=== PATIENT | male | born 1955 | race Two or more races ===

== ENCOUNTER 2016-07-17 20:55 | Emergency (ER) | payer MEDICARE, MEDICAID ==
[~2016-07-17] VITALS: Ht 165.1 cm; Wt 72.6 kg
[~2016-07-17 20:55] MED LIST: CIPR-173 PO; FOLI1TAB6 PO; FURO40TA4 PO; LACT10SO PO; OMEP20CA5 OR; PROPANOLOL PO; Rifaximin PO; SPIR25TA89 PO; THIA100T11 PO; TRAZ50TA2 PO; URSO300C7 PO
[2016-07-17] MEDS ORDERED: SODIUM CHLORIDE 0.9% 1,000 ML IV ONE (21:30)
[2016-07-17 21:36] LABS: Basophils # (auto) 0.1 uL; Basophils % (auto) 1.1 % (0.0-2.0); DEFINITIVE VIEW TRANSMISSION; Eosinophils # (auto) 0.1 uL; Eosinophils % (auto) 1.1 % (0.0-7.0); Hemoglobin 8.8 g/dL (13.5-17.5); Lymphocytes # (auto) 0.8 uL; Lymphocytes % (auto) 12.3 % (10.0-50.0); Mean Corpuscular Hemoglobin 30.1 pg (28.0-32.0); Mean Corpuscular Hgb Conc. 33.6 g/dL (32.0-36.0); Mean Corpuscular Volume 89.6 fL (80.0-100.0); Mean Platelet Volume 7.3 fL (7.4-10.4); Monocytes # (auto) 0.8 uL; Monocytes % (auto) 12.3 % (0.0-12.0); Neutrophils # (auto) 4.5 uL; Neutrophils % (auto) 73.2 % (37.0-80.0); Platelet Count (auto) 235 10^3/uL (140-450); White Blood Cell 6.1 10^3/uL (4.4-10.8)
[2016-07-17 21:47] LABS: Albumin 2.2 g/dL (3.4-5.0); Anion Gap 8 (5-15); Aspartate Aminotransferase 14 U/L (15-37); BUN/Creatinine Ratio 15.1; Blood Urea Nitrogen 16 mg/dL (7-18); Calcium 7.7 mg/dL (8.5-10.1); Carbon Dioxide 28 mmol/L (21-32); Chloride 100 mmol/L (98-107); GFR African American 92 mL/min; GFR Non-African American 76 mL/min; Glucose 99 mg/dL (74-106); Magnesium 2.4 mg/dL (1.6-2.6); Sodium 136 mmol/L (136-145)
[2016-07-17 21:52] LABS: Alkaline Phosphatase 154 U/L (45-117)
[2016-07-17 22:01] LABS: Anisocytosis Slight; Burr Cells FEW; Platelet Estimate Adequate
[2016-07-17 22:02] LABS: Ovalocytes FEW
[2016-07-17 22:13] LABS: B-Type Natriuretic Peptide 2066.74 pg/mL (0-100); Partial Thromboplastin Time 33.1 sec (22.64-33.71); Temperature: 22.2 C (20.0-25.0)
[2016-07-17 22:14] LABS: INR 1.22 (0.9-1.15); Prothrombin Time 12.6 sec (9.37-12.3)
[2016-07-17] MEDS ORDERED: FUROSEMIDE 20 MG/2 ML VIAL IV ONE (23:30)
[2016-07-18] MEDS ORDERED: LORazepam 2MG/ML-1ML VIAL IV ONE (00:30)
[2016-07-18] MEDS ORDERED: ZOLPIDEM TARTRATE 5 MG TAB PO ONE (01:45)
[2016-07-18] MEDS ORDERED: cefTRIAXone 1GM/50ML D5W 50 ML IV ONE (11:30)
[2016-07-18 12:43] LABS: Urine Bilirubin Negative (Negative); Urine Blood Negative /uL (Negative); Urine Color Yellow (Yellow); Urine Glucose Normal (Normal); Urine Ketone Negative (Negative); Urine Nitrite Negative (Negative); Urine RBC <1 /hpf (0 - 3); Urine Urobilinogen Normal (Negative)
[2016-07-18 17:26] VITALS: BP 165/82
== END 2016-07-18 17:40 | disposition short-term general hospital (02) ==
LOC: EDBD 20:55 → ER 21:02
DX: R41.82 Altered mental status, unspecified (principal); J18.9 Pneumonia, unspecified organism; J90 Pleural effusion, not elsewhere classified; E87.6 Hypokalemia; I50.9 Heart failure, unspecified; F11.10 Opioid abuse, uncomplicated; E43 Unspecified severe protein-calorie malnutrition; Z94.4 Liver transplant status; D63.8 Anemia in other chronic diseases classified elsewhere; K21.9 Gastro-esophageal reflux disease without esophagitis; I10 Essential (primary) hypertension; Z87.11 Personal history of peptic ulcer disease; Z87.891 Personal history of nicotine dependence; Z88.6 Allergy status to analgesic agent
CPT/HCPCS: 36415; 36600; 70450; 71010; 74176; 80053; 80320; 81001; 82140; 82805; 83605; 83735; 83880; 84484; 85025; 85610; 85730; 87040; 96361; 96365; 96375; 99285; G0434; J0696; J1940; J2060; J7030; 94761